=== PATIENT | male | born 1995 | race Native Hawaiian/Other Pacific Islander ===

== ENCOUNTER 2016-10-13 18:21 | Emergency (ER) | payer SELFPAY ==
[2016-10-13] MEDS ORDERED: TYLENOL/CODEINE PO ONE (21:07)
[2016-10-13] MEDS ORDERED: DELTASONE PO ONE (21:07)
--- NOTE | 2016-10-13 21:09 | Emergency Department Report ---
Entered by LAURA MALAGON, acting as scribe for KIM CHATMAN PA. - General Chief Complaint: Upper Respiratory Infection Stated Complaint: VEL Time Seen by Provider: 10/13/16 20:44 Source: patient Mode of arrival: Ambulatory Limitations: No Limitations - History of Present Illness Initial Comments: 21 y/o male with a PMHx of asthma presents to the ED c/o an upper respiratory infection that began 3 weeks ago. Reports associated cough with blood streaks and brown sputum, SOB, sore throat, rhinorrhea, congestion, and chest pain. Patient rates chest pain a 9/10, which he describes as tight and aching in quality. Aggravated with cough, breathing, and deep breaths, and alleviated with nothing. Patient states it feels like "someone is stabbing me in my chest when I breath." Reports his SOB and cough is worse at night. Notes Hx of similar symptoms for 3 years, which he would get Robitussin with codeine from [facility] for relief. Reports he was seen at [facility] 2 weeks ago and was treated for a URI, which he was prescribed a 5 day course of antibiotics. Took antibiotics for 3 days with no relief. Notes he quit smoking 2 months ago. NKDA. MEJIAS Complaint: cough Onset/Timin -: week(s) Severity: moderate Severity scale (0 -10): 9 (chest pain) Quality: aching, other (tight) Consistency: constant Improves With: nothing Worsens With: deep breaths, other (cough and breathing) Context: other (Hx of similar symptoms) Associated Symptoms: denies other symptoms, rhinorrhea, nasal congestion, sore throat, cough (with brown sputum), chest pain, shortness of breath. denies: fever, chills, myalgias, diaphoresis, headache, stiff neck, abdominal pain, nausea, vomiting, diarrhea, dysuria, rash, confusion, right sweats, weight loss , epistaxis, hoarseness, ear pain Treatments Prior to Arrival: antibiotics - Related Data Previous Rx's Medication Instructions Recorded Last Taken Type ALBUTEROL Inhaler [ProAir HFA 2 puff IH QID PRN #1 pump 10/13/16 Unknown Rx Inhaler] Acetamin/Codeine 120-12Mg/5 ml 5 ml PO TID PRN #80 ml 10/13/16 Unknown Rx [Tylenol/Codeine] Ibuprofen [Motrin] 600 mg PO Q8H PRN #30 tablet 10/13/16 Unknown Rx Allergies Allergy/AdvReac Type Severity Reaction Status Date / Time No Known Allergies Allergy Unverified 10/13/16 18:48 ED Review of Systems Comment: All other systems reviewed and negative Constitutional: denies: chills, diaphoresis, fever, weakness Eyes: denies: eye pain, eye discharge, vision change ENT: throat pain, congestion, other (rhinorrhea). denies: ear pain Respiratory: cough (with brown sputum), shortness of breath. denies: wheezing Cardiovascular: chest pain. denies: palpitations, dyspnea on exertion, orthopnea, edema, syncope, paroxysmal nocturnal dyspnea Endocrine: no symptoms reported Gastrointestinal: denies: abdominal pain, nausea, vomiting, diarrhea Musculoskeletal: denies: back pain, joint swelling, arthralgia Skin: denies: rash, lesions Neurological: denies: headache, weakness, numbness, paresthesias ED Past Medical Hx - Past Medical History Previous Medical History?: Yes Hx Asthma: Yes Additional medical history: Hx. of frequency in bronchitis and pnemonia - Surgical History Past Surgical History?: No - Social History Smoking Status: Former Smoker Substance Use Type: Prescribed - Medications Home Medications: Home Medications Medication Instructions Recorded Confirmed Last Taken Type ALBUTEROL Inhaler [ProAir HFA 2 puff IH QID PRN #1 pump 10/13/16 Unknown Rx Inhaler] Acetamin/Codeine 120-12Mg/5 ml 5 ml PO TID PRN #80 ml 10/13/16 Unknown Rx [Tylenol/Codeine] Ibuprofen [Motrin] 600 mg PO Q8H PRN #30 tablet 10/13/16 Unknown Rx ED Physical Exam - General Limitations: No Limitations General appearance: alert, in no apparent distress - Head Head exam: Present: atraumatic, normocephalic - Eye Eye exam: Present: normal appearance, PERRL, EOMI Pupils: Present: normal accommodation - ENT ENT exam: Present: normal exam, mucous membranes moist, TM's normal bilaterally , normal external ear exam - Expanded ENT Exam Expanded Ear exam: Present: normal external inspection Mouth exam: Present: normal external inspection Teeth exam: Present: normal inspection Throat exam: Positive: normal inspection. Negative: tonsillar erythema, tonsillomegaly, tonsillar exudate, R peritonsillar mass, L peritonsillar mass - Neck Neck exam: Present: normal inspection, full ROM. Absent: tenderness, meningismus, lymphadenopathy, thyromegaly - Respiratory Respiratory exam: Present: normal lung sounds bilaterally. Absent: respiratory distress, wheezes, rales, rhonchi, stridor, accessory muscle use, decreased breath sounds - Cardiovascular Cardiovascular Exam: Present: regular rate, normal rhythm, normal heart sounds. Absent: systolic murmur, diastolic murmur, rubs, gallop - GI/Abdominal GI/Abdominal exam: Present: soft, normal bowel sounds. Absent: distended - Extremities Exam Extremities exam: Present: normal inspection, full ROM - Back Exam Back exam: Present: normal inspection, full ROM - Neurological Exam Neurological exam: Present: alert, oriented X3, normal gait - Psychiatric Psychiatric exam: Present: normal affect, normal mood - Skin Skin exam: Present: warm, dry, intact. Absent: rash ED Course Vital Signs 10/13/16 18:42 Temperature 98.1 F Pulse Rate 85 Respiratory 20 Rate Blood Pressure 116/75 O2 Sat by Pulse 100 Oximetry ED Medical Decision Making - Medical Decision Making 21-year-old male presents with an upper respiratory infection for 3 weeks. ED course: Patient will receive 1 dose of Mucinex. Chest X-ray ordered for patient. Chest x-ray was normal no acute or cardiopulmonary symptoms and history. Patient is not ill-appearing. Discussed the follow-up for a PCP as referred. Discuss his symptoms return or worsen to return to the ED Patient states understanding and will follow instructions. Vital signs stable. Patient is in no acute distress. ED Disposition Clinical Impression: URI with cough and congestion Disposition: DC-01 TO HOME OR SELFCARE Is pt being admited?: No Does the pt Need Aspirin: No Condition: Stable Instructions: Upper Respiratory Infection (ED) Additional Instructions: Follow-up with primary care physician. The medication as prescribed. His symptoms worsen please return to ED. Prescriptions: Acetamin/Codeine 120-12Mg/5 ml [Tylenol/Codeine] 5 ml PO TID PRN #80 ml PRN Reason: Pain ALBUTEROL Inhaler [ProAir HFA Inhaler] 2 puff IH QID PRN #1 pump PRN Reason: Shortness Of Breath Ibuprofen [Motrin] 600 mg PO Q8H PRN #30 tablet PRN Reason: Pain Referrals: PRIMARY CARE,MD [Primary Care Provider] - 3-5 Days [facility] [Outside] - 3-5 Days [facility] [Outside] - 3-5 Days [facility] [Outside] - 3-5 Days Forms: Work/School Release Form(ED) Time of Disposition: 22:23 This documentation as recorded by the MANAS montilla JASMINE,accurately reflects the service I personally performed and the decisions made by LURDES bee OYINLOLA A, PA.
--- NOTE | 2016-10-13 21:52 | XRay Report ---
FINAL REPORT EXAM: XR CHEST ROUTINE 2V HISTORY: cough/pain/bloody sputum TECHNIQUE: PA and lateral views of the chest PRIORS: None. FINDINGS: Lines, tubes, and devices: N/A Lungs and pleura: Trachea is normal in position. Lungs are clear of infiltrate, pleural effusion, vascular congestion, or pneumothorax. Cardiomediastinal silhouette: Cardiac and mediastinal silhouettes are unremarkable. Other: Bony structures are intact. IMPRESSION: No acute cardiopulmonary process seen.
[2016-10-13 22:57] VITALS: BP 125/82
== END 2016-10-13 22:55 | disposition home or self-care (01) ==
LOC: ED 18:21
DX: J06.9 Acute upper respiratory infection, unspecified (principal); R09.81 Nasal congestion; J45.909 Unspecified asthma, uncomplicated; J18.9 Pneumonia, unspecified organism; Z87.891 Personal history of nicotine dependence
CPT/HCPCS: 71020; 99283; J7512